=== PATIENT | female | born 1985 ===

== ENCOUNTER 2017-06-21 02:22 | Emergency (ER) | payer SELFPAY ==
[2017-06-21 02:31] VITALS: BP 110/73; PULSE 64; RESP 18; TEMP 98.4; O2SAT 96
--- NOTE | 2017-06-21 02:44 | ED PDOC ---
Lower Extremity Pain/Injury Time Seen by Provider: 06/21/17 02:27 Chief Complaint (Nursing): Lower Extremity Problem/Injury Chief Complaint (Provider): Ankle pain History Per: Patient Additional Complaint(s): 31 yo female, no PMH, presents to ED with complaints of right ankle pain and right foot pain. Pt was wearing heels and slipped in the ice. Past Medical History Reviewed: Nursing Documentation, Vital Signs Vital Signs: Last Vital Signs Temp 98.4 F 06/21/17 02:28 Pulse 64 06/21/17 02:28 Resp 18 06/21/17 02:28 BP 110/73 06/21/17 02:28 Pulse Ox 96 06/21/17 02:28 - Medical History PMH: No Chronic Diseases - Surgical History Surgical History: No Surg Hx - Family History Family History: States: No Known Family Hx - Living Arrangements Living Arrangements: With Family - Social History Current smoker - smoking cessation education provided: No Alcohol: None Drugs: Denies - Home Medications Home Medications: Ambulatory Orders Medication Instructions Recorded Ibuprofen [Motrin] 600 mg PO Q6 #20 tab 06/21/17 - Allergies Allergies/Adverse Reactions: Allergies Allergy/AdvReac Type Severity Reaction Status Date / Time No Known Allergies Allergy Verified 06/21/17 02:30 Review of Systems ROS Statement: Except As Marked, All Systems Reviewed And Found Negative Musculoskeletal: Positive for: Foot Pain Physical Exam - Reviewed Nursing Documentation Reviewed: Yes Vital Signs Reviewed: Yes - Physical Exam Appears: Positive for: Well, Non-toxic, Uncomfortable Head Exam: Positive for: ATRAUMATIC, NORMAL INSPECTION, NORMOCEPHALIC Skin: Positive for: Normal Color, Warm, DRY Eye Exam: Positive for: EOMI, Normal appearance, PERRL ENT: Positive for: Normal ENT Inspection Neck: Positive for: Normal, Painless ROM Cardiovascular/Chest: Positive for: Regular Rate, Rhythm Respiratory: Positive for: CNT, Normal Breath Sounds Gastrointestinal/Abdominal: Positive for: Normal Exam, Bowel Sounds, Soft Back: Positive for: Normal Inspection Extremity: Positive for: Other (no ecchymosis). Negative for: Deformity, Swelling Neurologic/Psych: Positive for: Alert, Oriented - ECG O2 Sat by Pulse Oximetry: 96 Medical Decision Making Medical Decision Making: Pt medicated with Motrin PO XR: NAD, as read by JACKIE Raheel wrap applied and Pt instructed in crutch walking RICE therapy advised Disposition - Clinical Impression Clinical Impression: Ankle injury, Ankle sprain - Patient ED Disposition Is Patient to be Admitted: No - Disposition Referrals: Edwige Tesfaye MD [Staff Provider] - Disposition: Routine/Home Disposition Time: 04:02 Condition: STABLE Prescriptions: Ibuprofen [Motrin] 600 mg PO Q6 #20 tab Instructions: Ankle Sprain (ED) Forms: [employer] (Swedish)
--- NOTE | 2017-06-21 13:54 | RAD ---
PROCEDURE: Right Ankle Radiographs. HISTORY: pain s/.p twist and fall COMPARISON: None FINDINGS: BONES: Normal. No fracture. JOINTS: Normal. No osteoarthritis. Ankle mortise maintained. Talar dome intact SOFT TISSUES: Normal. OTHER FINDINGS: None. IMPRESSION: Normal right ankle radiographs.
--- NOTE | 2017-06-21 13:55 | RAD ---
PROCEDURE: Right Foot Radiographs. HISTORY: pain s/.p twist and fall COMPARISON: None. FINDINGS: BONES: Technically limited examination. No evidence fracture. JOINTS: Normal. SOFT TISSUES: Normal. OTHER FINDINGS: None. IMPRESSION: No fracture/ dislocation. Technically limited examination
== END 2017-06-21 04:22 | disposition home or self-care (01) ==
LOC: H.ER 02:22
DX: S93.401A Sprain of unspecified ligament of right ankle, initial encounter (principal); W19.XXXA Unspecified fall, initial encounter; Y92.89 Other specified places as the place of occurrence of the external cause